=== PATIENT | female | born 1955 | race Caucasian/White ===

== ENCOUNTER 2023-05-12 22:09 | Inpatient (IN) | payer MEDICARE, OTHER ==
[~2023-05-12] VITALS: Ht 154.9 cm; Wt 79.4 kg
[~2023-05-12 22:09] MED LIST: ACET-2154 PO; CALC-555 PO; ENOX40DI SQ; LEVO100T10 PO; MENT71OI TOP; Olanzapine PO; PANT40TA2 PO; RISP0.5T8 PO
[2023-05-12 22:15] VITALS: BP 139/66; TEMP 98.5; O2SAT 96
[2023-05-12] MEDS ORDERED: MAGNESIUM HYDROXIDE 30 ML LIQUID UDC PO PRN (22:30)
[2023-05-12] MEDS ORDERED: MAG HYDROX/AL HYDROX/SIMETH 30 ML LIQUID UDC PO PRN (22:30)
[2023-05-12] MEDS: BLOOD SUGAR DIAGNOSTIC 1 EACH STRIP VI ONE (22:37)
[2023-05-12] MEDS: LORAZEPAM 1 MG TABLET PO PRN (22:47)
[2023-05-12] MEDS ORDERED: NA P RC (23:16)
[2023-05-12] MEDS ORDERED: QUET100T PO (23:16)
[2023-05-12] MEDS ORDERED: ZOLP10TA2 PO (23:16)
[2023-05-12] MEDS ORDERED: PANT40TA49 PO (23:16)
[2023-05-12] MEDS ORDERED: BISA10SU95 RC (23:16)
[2023-05-12] MEDS ORDERED: MAGN400O6 PO (23:16)
[2023-05-12] MEDS ORDERED: BENZ1TAB7 PO (23:16)
[2023-05-12] MEDS ORDERED: HALO50AM2 IM (23:16)
[2023-05-12] MEDS ORDERED: CRAN500T3 PO (23:16)
[2023-05-12] MEDS ORDERED: CLON0.5T4 PO (23:16)
[2023-05-12] MEDS ORDERED: QUET50TA PO (23:16)
[2023-05-12] MEDS ORDERED: ACET-2154 PO (23:16)
[2023-05-12] MEDS ORDERED: LEVO75TA7 PO (23:16)
[2023-05-13 07:44] VITALS: BP 141/70; TEMP 98.5; O2SAT 98
[2023-05-13] MEDS ORDERED: FLEET ENEMA 133 ML BOTTLE RC PRN (15:45)
[2023-05-13] MEDS ORDERED: BISACODYL 10 MG SUPP.RECT RC PRN (15:45)
[2023-05-13 16:14] VITALS: BP 152/78; TEMP 98.2; O2SAT 98
[2023-05-13] MEDS: HALOPERIDOL 2 MG TABLET PO SCH (18:17)
[2023-05-13] MEDS: QUETIAPINE FUMARATE 25 MG TABLET PO SCH (20:09)
[2023-05-13 21:12] VITALS: BP 139/82; TEMP 98; O2SAT 96
[2023-05-13] MEDS: CEphaleXIN 500 MG CAPSULE PO SCH (23:23)
[2023-05-13] MEDS: TEMAZEPAM 7.5 MG CAPSULE PO PRN (23:23)
[2023-05-14] MEDS: PANTOPRAZOLE SODIUM 40 MG TABLET.DR PO SCH (06:14)
[2023-05-14] MEDS: LEVOTHYROXINE SODIUM 75 MCG TABLET PO SCH (06:14)
[2023-05-14 07:58] VITALS: BP 146/64; TEMP 98.5; O2SAT 98
[2023-05-14 16:15] VITALS: BP 134/71; TEMP 98.2; O2SAT 97
[2023-05-14 19:49] VITALS: BP 145/74; TEMP 98.1; O2SAT 95
[2023-05-15 07:16] LABS: BASOPHILS % (AUTO) 0.7 % (0.0-2.0); EOSINOPHILS # (AUTO) 0.3 K/uL (0.0-0.7); EOSINOPHILS % (AUTO) 5.2 % (0.0-7.0); HEMATOCRIT 35.4 % (31.2-41.9); HEMOGLOBIN 12.1 g/dL (10.9-14.3); LYMPHOCYTES # (AUTO) 1.4 K/uL (0.8-4.8); LYMPHOCYTES % (AUTO) 27.4 % (20.5-51.5); MEAN CORPUSCULAR HEMOGLOBIN 30.5 uug (24.7-32.8); MEAN CORPUSCULAR HGB CONC 34 g/dL (32.3-35.6); MEAN CORPUSCULAR VOLUME 88.9 fL (75.5-95.3); MONOCYTES # (AUTO) 0.5 K/uL (0.1-1.30); MONOCYTES % (AUTO) 9.9 % (0.0-11.0); NEUTROPHILS # (AUTO) 2.8 K/uL (1.8-8.9); NEUTROPHILS % (AUTO) 56.8 % (38.5-71.5); PLATELET COUNT (AUTO) 218 K/uL (179-408); RED BLOOD CELL COUNT(AUTO) 3.98 MIL/uL (3.63-4.92); RED CELL DISTRIBUTION WIDTH 14.3 % (12.3-17.7)
[2023-05-15 07:45] LABS: THYROID STIMULATING HORMONE 15.276 mIU/mL (0.358-3.740)
[2023-05-15 07:47] LABS: DIFFERENTIAL COMMENT 1
[2023-05-15 08:21] LABS: ALBUMIN 3.2 g/dL (3.4-5.0); BILIRUBIN,TOTAL 0.8 mg/dL (0.2-1.0); CALCIUM 8.5 mg/dL (8.5-10.1); CREATININE 1.1 mg/dL (0.6-1.3); MAGNESIUM 2.3 mg/dL (1.8-2.4); PHOSPHOROUS 3.7 mg/dL (2.5-4.9); POTASSIUM 3.6 mmol/L (3.5-5.1); TOTAL PROTEIN, SERUM 6.5 g/dL (6.4-8.2)
[2023-05-15 16:31] VITALS: BP 136/84; TEMP 98.6; O2SAT 98
[2023-05-15] MEDS: HALOPERIDOL 5 MG TABLET PO SCH (17:37)
[2023-05-15 19:53] VITALS: BP 126/78; TEMP 98.4; O2SAT 96
[2023-05-15] MEDS: QUETIAPINE FUMARATE 25 MG TABLET PO SCH (20:43)
[2023-05-16 08:00] VITALS: BP 115/52; TEMP 97.8; O2SAT 99
[2023-05-16 15:26] VITALS: BP 152/89; TEMP 98.2; O2SAT 98
[2023-05-16 20:10] VITALS: BP 156/76; TEMP 98.2; O2SAT 96
[2023-05-17 07:57] VITALS: BP 124/67; TEMP 98.2; O2SAT 95
[2023-05-17 15:09] VITALS: BP 164/62; TEMP 98.2; O2SAT 97
[2023-05-17] MEDS: HALOPERIDOL 5 MG TABLET PO SCH (21:00)
[2023-05-18] MEDS: GLUCERNA SHAKE 237 ML CAN PO SCH (09:19)
[2023-05-18 15:16] VITALS: BP 144/96; TEMP 98.2; O2SAT 99
[2023-05-18 20:00] VITALS: BP 116/58; TEMP 98.5; O2SAT 97
[2023-05-19 08:10] VITALS: BP 171/63; TEMP 98.4; O2SAT 98
[2023-05-19 15:40] VITALS: BP 189/103; TEMP 98.6; O2SAT 96
[2023-05-19] MEDS: CLONIDINE-TTS 1 PATCH TD SCH (16:56)
[2023-05-19 19:45] VITALS: BP 118/68; TEMP 97.7; O2SAT 96
[2023-05-20 08:09] VITALS: BP 150/80; TEMP 98; O2SAT 98
[2023-05-20 16:15] VITALS: BP 156/69; TEMP 97.8; O2SAT 98
[2023-05-20 19:39] VITALS: BP 168/46; TEMP 98; O2SAT 99
[2023-05-21 08:06] VITALS: BP 123/57; TEMP 97.6; O2SAT 98
[2023-05-21 16:41] VITALS: BP 131/68; TEMP 97.8; O2SAT 98
[2023-05-21 20:19] VITALS: BP 149/51; TEMP 98.2; O2SAT 98
[2023-05-22 07:50] VITALS: BP 117/57; TEMP 98; O2SAT 98
[2023-05-22] MEDS: HALOPERIDOL 5 MG TABLET PO SCH (10:30)
[2023-05-22] MEDS: HALOPERIDOL LACTATE 5 MG/1 ML VIAL IM PRN (10:54)
[2023-05-22] MEDS: GLUCERNA SHAKE 237 ML CAN PO SCH (12:01)
[2023-05-22 16:24] VITALS: BP 114/72; TEMP 98.1; O2SAT 98
[2023-05-22 20:03] VITALS: BP 116/70; TEMP 98.1; O2SAT 97
[2023-05-23 08:40] VITALS: BP 140/60; TEMP 98; O2SAT 99
[2023-05-23 10:24] LABS: BASOPHILS # (AUTO) 0.2 K/UL (0.0-0.2); BASOPHILS % (AUTO) 2.9 % (0.0-2.0); EOSINOPHILS # (AUTO) 0.1 K/uL (0.0-0.7); EOSINOPHILS % (AUTO) 1.2 % (0.0-7.0); HEMATOCRIT 40.5 % (31.2-41.9); HEMOGLOBIN 13.9 g/dL (10.9-14.3); LYMPHOCYTES % (AUTO) 17.2 % (20.5-51.5); MEAN CORPUSCULAR HEMOGLOBIN 30.2 uug (24.7-32.8); MEAN CORPUSCULAR HGB CONC 34 g/dL (32.3-35.6); MEAN CORPUSCULAR VOLUME 88.1 fL (75.5-95.3); MONOCYTES # (AUTO) 0.4 K/uL (0.1-1.30); MONOCYTES % (AUTO) 6.3 % (0.0-11.0); NEUTROPHILS # (AUTO) 4.1 K/uL (1.8-8.9); NEUTROPHILS % (AUTO) 72.4 % (38.5-71.5); PLATELET COUNT (AUTO) 228 K/uL (179-408); RED CELL DISTRIBUTION WIDTH 14.4 % (12.3-17.7); WHITE BLOOD COUNT (AUTO) 5.6 K/uL (3.8-11.8)
[2023-05-23 11:18] LABS: ALBUMIN 3.9 g/dL (3.4-5.0); BILIRUBIN,TOTAL 1.2 mg/dL (0.2-1.0); CALCIUM 9.3 mg/dL (8.5-10.1); POTASSIUM 4.2 mmol/L (3.5-5.1); TOTAL PROTEIN, SERUM 7.5 g/dL (6.4-8.2)
[2023-05-23 13:50] LABS: *BILIRUBIN,URIN 1+ (NEGATIVE); *CLARITY,URINE CLEAR (CLEAR); *COLOR,URINE YELLOW (YELLOW); *KETONES,URINE 2+ (NEGATIVE); *PROTEIN,URINE 1+ (NEGATIVE); LEUKOCYTE ESTERASE ,URINE 1+ (NEGATIVE); NITRITE, URINE NEGATIVE (NEGATIVE); UGLUCOSE NEGATIVE (NEGATIVE)
[2023-05-23 13:54] LABS: *BLOOD, URINE TRACE (NEGATIVE)
[2023-05-23 13:59] LABS: BACTERIA,URINE FEW /HPF (NONE SEEN); SQUAMOUS EPITHELIAL CELL,UR FEW /HPF (NONE SEEN); WBC,URINE 20-50 /HPF (0-3)
[2023-05-23 15:24] VITALS: BP 102/60; TEMP 98; O2SAT 99
[2023-05-23] MEDS: CEphaleXIN 500 MG CAPSULE PO SCH (16:28)
[2023-05-23] MEDS: HALOPERIDOL 5 MG TABLET PO SCH (16:29)
[2023-05-23 19:43] VITALS: BP 122/68; TEMP 98.1; O2SAT 98
[2023-05-24 07:43] VITALS: BP 109/45; TEMP 98; O2SAT 98
[2023-05-24] MEDS: HALOPERIDOL LACTATE 5 MG/1 ML VIAL IM PRN (08:55)
[2023-05-24] MEDS: HALOPERIDOL DECANOATE 50 MG/1 ML AMPUL IM ONE (12:32)
[2023-05-24 15:18] VITALS: BP 135/72; TEMP 98; O2SAT 96
[2023-05-24 19:56] VITALS: BP 126/64; TEMP 98.1; O2SAT 96
[2023-05-25 07:30] VITALS: BP 132/52; TEMP 98; O2SAT 99
[2023-05-25 15:37] VITALS: BP 109/60; TEMP 98; O2SAT 99
[2023-05-25 20:00] VITALS: BP 148/56; TEMP 98.2; O2SAT 95
[2023-05-26 08:11] VITALS: BP 137/65; TEMP 97.6; O2SAT 98
[2023-05-26] MEDS: ACETAMINOPHEN 325 MG TABLET PO PRN (08:58)
[2023-05-26 16:00] VITALS: BP 115/61; TEMP 97.8; O2SAT 98
[2023-05-26 20:00] VITALS: BP 137/77; TEMP 98.2; O2SAT 95
[2023-05-27 07:59] VITALS: BP 157/70; TEMP 98.3; O2SAT 98
[2023-05-27 16:32] VITALS: BP 125/56; TEMP 98; O2SAT 98
[2023-05-27 19:59] VITALS: BP 145/81; TEMP 98.2; O2SAT 96
[2023-05-28 07:51] VITALS: BP 153/71; TEMP 98; O2SAT 98
[2023-05-28 16:33] VITALS: BP 170/61; TEMP 98; O2SAT 98
[2023-05-28 20:08] VITALS: BP 148/68; TEMP 98.3; O2SAT 98
[2023-05-29 07:52] VITALS: BP 160/68; TEMP 98.1; O2SAT 97
[2023-05-29 16:06] VITALS: BP 160/67; TEMP 98; O2SAT 97
[2023-05-29 19:53] VITALS: BP 122/78; TEMP 98.2; O2SAT 96
[2023-05-30 07:30] VITALS: BP 150/75; TEMP 98.4; O2SAT 98
[2023-05-30 15:58] VITALS: BP 141/49; TEMP 98; O2SAT 99
[2023-05-30 19:51] VITALS: BP 151/68; TEMP 98.1; O2SAT 98
[2023-05-31] MEDS: LEVOTHYROXINE SODIUM 100 MCG TABLET PO SCH (06:14)
[2023-05-31 07:38] VITALS: BP 133/81; TEMP 98; O2SAT 99
== END 2023-05-31 16:00 | DRG 885 ==
LOC: GPS 22:09
PROVIDERS: ADMIT Psychiatry & Neurology Psychosomatic Medicine; ATTEND Internal Medicine
DX: F20.9 Schizophrenia, unspecified (principal); N39.0 Urinary tract infection, site not specified; E44.0 Moderate protein-calorie malnutrition; E87.20 Acidosis, unspecified; E03.9 Hypothyroidism, unspecified; E66.9 Obesity, unspecified; Z68.33 Body mass index [BMI] 33.0-33.9, adult; E88.09 Other disorders of plasma-protein metabolism, not elsewhere classified; Z79.890 Hormone replacement therapy; B96.89 Other specified bacterial agents as the cause of diseases classified elsewhere; M62.81 Muscle weakness (generalized); Z01.810 Encounter for preprocedural cardiovascular examination; Z86.39 Personal history of other endocrine, nutritional and metabolic disease; F41.9 Anxiety disorder, unspecified; M24.542 Contracture, left hand; Z87.891 Personal history of nicotine dependence; Z91.199 Patient's noncompliance with other medical treatment and regimen due to unspecified reason; Z91.81 History of falling; Z86.73 Personal history of transient ischemic attack (TIA), and cerebral infarction without residual deficits; E78.5 Hyperlipidemia, unspecified; Z87.440 Personal history of urinary (tract) infections; I10 Essential (primary) hypertension; R41.89 Other symptoms and signs involving cognitive functions and awareness
CPT/HCPCS: 36415; 83735; 84100; 84443; 84481; 85025; 93005; J1630; J1631